=== PATIENT | female | born 1980 | race African-American/Black ===

== ENCOUNTER 2016-11-20 10:07 | Outpatient (CLI) | payer OTHER ==
--- NOTE | 2016-11-20 10:50 | Non Stress Test Report ---
Non Stress Test Datetime Report Generated by CPN: 11/20/2016 10:49 INDICATION Indication for Study: Ordered by Provider Indication for Study (NST) Other: ama VITAL SIGNS Temperature - NST: 97.5 Pulse - NST: 90 RESP - NST: 16 NBPSYS NST: 119 NBPDIA NST: 80 MONITORING Monitor Explained: Monitor Explained; Test Explained; Patient Verbalized Understanding Time on Monitor: 11/20/2016 10:24 Time off Monitor: 11/20/2016 10:46 NST Duration: 22 NST INTERVENTIONS NST Interventions: PO Hydration; Reposition Patient BABY A: [id number] BABY A Movement : Present Contraction Frequency : rare FHR Baseline : 135 Accelerations : 15X15 Decelerations : None Variability : Moderate 6-25bpm NST Review: Meets Criteria for Reactive NST NST Review and Verified By : Chiqui Camp RNC NST Results: Reactive NST REPORT Report Trigger: Send Report
== END 2016-11-20 10:49 | disposition home or self-care (01) ==
LOC: LC 10:07
PROVIDERS: ATTEND Obstetrics & Gynecology
PROC: 4A1HXCZ Monitoring of Products of Conception, Cardiac Rate, External Approach (ICD-10-PCS; principal; 2016-11-20)
DX: O09.523 Supervision of elderly multigravida, third trimester (principal); Z3A.36 36 weeks gestation of pregnancy
CPT/HCPCS: 59025

== ENCOUNTER 2016-11-23 09:54 | Outpatient (CLI) | payer OTHER ==
--- NOTE | 2016-11-23 10:45 | Non Stress Test Report ---
Non Stress Test Datetime Report Generated by CPN: 11/23/2016 10:45 DEMOGRAPHIC EGA NST: 36.3 INDICATION Indication for Study: Ordered by Provider Indication for Study (NST) Other: AMA MONITORING Monitor Explained: Monitor Explained; Test Explained; Patient Verbalized Understanding Time on Monitor: 11/23/2016 10:05 Time off Monitor: 11/23/2016 10:40 NST Duration: 35 NST INTERVENTIONS NST Interventions: PO Hydration; Reposition Patient Physician Notified NST: H Terrell CNM BABY A: [id number] BABY A Movement : Present Contraction Frequency : irregular FHR Baseline : 145 Accelerations : 15X15 Decelerations : None Variability : Moderate 6-25bpm NST Review: Meets Criteria for Reactive NST NST Review and Verified By : Usha Armendariz RNC NST Results: Reactive NST REPORT Report Trigger: Send Report
== END 2016-11-23 10:44 | disposition home or self-care (01) ==
LOC: LC 09:54
PROVIDERS: ATTEND Obstetrics & Gynecology
PROC: 4A1HXCZ Monitoring of Products of Conception, Cardiac Rate, External Approach (ICD-10-PCS; principal; 2016-11-23)
DX: O09.523 Supervision of elderly multigravida, third trimester (principal)
CPT/HCPCS: 59025

== ENCOUNTER 2016-12-06 23:16 | Inpatient (IN) | payer OTHER ==
[2016-12-06] MEDS ORDERED: LIDOCAINE 1% INJ-PF (10 MG/ML) 30 ML SDV ONE (23:43)
[2016-12-06] MEDS ORDERED: MISOPROSTOL 0.2 MG TABLET ONE ×2 (23:43→23:44)
[2016-12-06] MEDS ORDERED: OXYTOCIN/NORMAL SALINE 20 UNIT/1,000 ML RTUINJ ONE (23:43)
[2016-12-06] MEDS ORDERED: PENICILLIN G-K 5 MILLION UNIT VIAL ONE (23:43)
[2016-12-06] MEDS ORDERED: RINGERS SOLUTION,LACTATED 1,000 ML IV ONE (23:44)
[2016-12-06] MEDS ORDERED: PENICILLIN G POTASSIUM 5,000,000 UNIT in DEXTROSE 5%-WATER 100 ML IV ONE (23:44)
[2016-12-07 00:09] LABS: ABSOLUTE BASOPHILS # (AUTO) 0.1 10^3/uL (0.0-0.2); ABSOLUTE LYMPHOCYTES (AUTO) 1.7 10^3/uL (0.5-4.7); ABSOLUTE MONOCYTES (AUTO) 0.9 10^3/uL (0.1-1.4); ABSOLUTE NEUT (AUTO) 6.4 10^3/uL (1.7-8.2); BASOPHILS % (AUTO) 0.6 % (0-2); EOSINOPHILS % (AUTO) 0.4 % (0-6); HEMATOCRIT 36.1 % (36.0-47.0); HEMOGLOBIN 12.1 g/dL (12.0-15.5); HGB HCT DIFFERENCE 0.2; LYMPHOCYTES % (AUTO) 18.7 % (13-45); MEAN CORPUSCULAR HEMOGLOBIN 27.4 pg (27.0-33.4); MEAN CORPUSCULAR HGB CONC 33.6 g/dL (32.0-36.0); MEAN CORPUSCULAR VOLUME 81 fl (80-97); MONOCYTES % (AUTO) 9.6 % (3-13); RED BLOOD COUNT 4.44 10^6/uL (3.72-5.28); RED CELL DISTRIBUTION WIDTH 15.9 % (11.5-14.0); SEGMENTED NEUTROPHILS % (AUTO) 70.7 % (42-78); WHITE BLOOD COUNT 9.1 10^3/uL (4.0-10.5)
[2016-12-07] MEDS ORDERED: LIDOCAINE 1% INJ-PF (10 MG/ML) 30 ML SDV ONE (00:16)
[2016-12-07] MEDS ORDERED: OXYTOCIN/NORMAL SALINE 20 UNIT/1,000 ML RTUINJ ONE (00:16)
[2016-12-07] MEDS ORDERED: MISOPROSTOL 0.2 MG TABLET ONE (00:16)
[2016-12-07] MEDS ORDERED: FENTANYL CITRATE INJ/PF 100 MCG/2 ML AMPUL ONE ×2 (00:16→00:18)
[2016-12-07 00:24] LABS: APPEARANCE,URINE SLIGHTLY-CLOUDY; BILIRUBIN,URINE NEGATIVE (NEGATIVE); GLUCOSE, URINE NEGATIVE (NEGATIVE); KETONES,URINE 20 mg/dL (NEGATIVE); LEUKOCYTE ESTERASE,URINE NEGATIVE (NEGATIVE); NITRITE,URINE NEGATIVE (NEGATIVE); PROTEIN,URINE 100 mg/dL (NEGATIVE); URINE SPECIFIC GRAVITY 1.032; UROBILINOGEN,URINE NEGATIVE mg/dL (<2.0)
[2016-12-07 00:38] LABS: URINE BARBITURATES SCREEN NEGATIVE; URINE METHADONE SCREEN NEGATIVE; URINE OPIATES LOW NEGATIVE; URINE PHENCYCLIDINE SCREEN NEGATIVE
[2016-12-07] MEDS ORDERED: MEASLES,MUMPS&RUBELLA VACC/PF 0.5 ML VIAL SUBCUT PRN (02:29)
[2016-12-07] MEDS ORDERED: ACETAMINOPHEN WITH CODEINE #3 TABLET PO PRN ×2 (02:29)
[2016-12-07] MEDS ORDERED: BENZOCAINE/MENTHOL AEROSOL SPRAY 56 ML TOP PRN (02:29)
[2016-12-07] MEDS ORDERED: ZOLPIDEM TARTRATE 5 MG TABLET PO PRN (02:29)
[2016-12-07] MEDS ORDERED: DIBUCAINE 1% OINTMENT 28 GM TP PRN (02:29)
[2016-12-07] MEDS ORDERED: DIPH/PERTUSS(ACELL)/TETANUS VAC/PF 0.5 ML SYR (>=10YO) IM PRN (02:29)
[2016-12-07] MEDS ORDERED: OXYTOCIN/NORMAL SALINE 20,000 UNIT/1,000,000 ML RTUINJ IV PRN (02:29)
[2016-12-07] MEDS ORDERED: PENICILLIN G POTASSIUM 2,500,000 UNIT in DEXTROSE 5%-WATER 50 ML IV SCH (04:00)
[2016-12-07] MEDS ORDERED: IBUPROFEN 800 MG TABLET ONE (04:38)
[2016-12-07] MEDS: IBUPROFEN 800 MG TABLET PO SCH ×3 (04:40→22:03)
--- NOTE | 2016-12-07 05:08 | Admission Physical ---
Datetime Report Generated by CPN: 12/07/2016 05:08 CURRENT ADMISSION Hx Assessment: The History has been Reviewed and is Current Chief Complaint: Uterine Contractions Indication for Induction: Not Applicable Admit Plan: Admit to Unit; Initiate Labor Protocol ALLERGIES Medication Allergies: No Medication Allergies: No Known Allergies (11/23/2016) Medication Allergies: No Known Allergies (11/01/2013) Latex: No Latex Allergies Food Allergies: none Environmental Allergies: none OBSTETRICAL HISTORY EDC: 12/18/2016 00:00 : 4 Para: 2 Term: 1 : 1 SAB: 0 IAB: 1 Ectopic: 0 Livin Cesareans: 0 VBACs: 0 Multiple Births: 0 Gestational Diabetes: No Rh Sensitization: No Incompetent Cervix: No NATY: No Infertility: No ART Treatment: No Uterine Anomaly: No IUGR: No Hx Previous C/S: No Macrosomia: No Hx Loss/Stillborn: No PIH: No Hx : No Placenta Previa/Abruption: No Depression/PP Depression: No PTL/PROM: No Post Hemorrhage: No Current Procedures: Ultrasound; NST SEE RECORDS Alcohol: No Marijuana : No Cocaine: No Other Illicit Drugs: No Cigarettes: Never Smoker. 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 Surgery: No Heart Disease: No Hosp/Surgery: Yes Autoimmune Disorder: No Anesthetic Complications: No Kidney Disease: No Abnormal Pap Smear: No Neuro/Epilepsy: No Psychiatric Disorders: No Other Medical Diseases: No Hepatitis/Liver Disease: No Significant Family History: No Varicosities/Phlebitis: No Trauma/Violence : No Thyroid Dysfunction: No Medical History Comments: Childbirth INFECTIOUS HISTORY Gonorrhea: No Genital Herpes: Yes Chlamydia: No Tuberculosis: No Syphilis: No Hepatitis: No HIV/AIDS Exposure: No Rash or Viral Illness: No HPV: No PHYSICAL EXAM General: Normal HEENT: Normal Neurologic: Normal Thyroid: Deferred Heart: Normal Lungs: Normal Breast: Normal Back: Normal Abdomen: Normal Genitourinary Exam: Normal Extremities: Normal DTRs: Normal Pelvic Type: Adequate Vital Signs: Reviewed VAGINAL EXAM Dilatation: 8 Effacement: 70 Station: -1 Contraction Comments: 2-3 MEMBRANES Membranes: Intact FETUS A EGA: 38.2 Monitoring: External US FHR- Baseline: 150 Variability: Moderate 6-25bpm Accelerations: 15X15 Decelerations: None FHR Category: Category I Estimated Weight (gm): 3800 Presentation: Vertex Admit Comment: Admit to L _ D, in active labor, denie lof, bleeding. states ctx every few min, states active baby gbs +, pcn AMA, obese NKDA Pt coping well with labor Does not desire epidural May want IV pain meds. Anticipate PLANS FOR LABOR AND DELIVERY Labor and Delivery: Plan Pain Management: None Feeding Preference: Breast Benefit of Breast Feed Discussed: Yes Circumcision: N/A INFORMED CONSENT Assignment: Kelsi Michele MD Signature: with User ID: [email or web address] : with User ID: [email or web address]
[2016-12-07] MEDS: SENNOSIDES/DOCUSATE 8.6-50 MG 1 EACH TABLET PO SCH (09:34)
[2016-12-07] MEDS: PRENATAL VITAMIN W-O CA NO5/FE FUMARATE/FA CAPSULE PO SCH (09:34)
[2016-12-07] MEDS: FERROUS SULFATE 325 MG TABLET PO SCH ×2 (09:34→17:12)
[2016-12-07] MEDS: DOCUSATE SODIUM 100 MG CAPSULE PO SCH ×2 (09:34→17:12)
--- NOTE | 2016-12-07 10:53 | PDOC PROGRESS REPORT ---
Subjective-OB Subjective: Post Delivery Day: 36 year old. Denies any needs at this time Physical Exam (OB) Vital Signs: Temp Pulse Resp BP Pulse Ox 98.0 F 87 17 104/59 L 99 12/07/16 08:33 12/07/16 08:33 12/07/16 08:33 12/07/16 08:33 12/07/16 08:33 Intake & Output 12/06/16 12/07/16 12/08/16 06:59 06:59 06:59 Weight 99.85 kg - Lochia Lochia Amount: Small 10-25 ml Lochia Color: Rubra/Red - Abdomen Description: Soft, Round Hernia Present: No Bowel Sounds: Normoactive Flatus Presence: Absent Stool: No Fundal Description: Firm Fundal Height: u/u - u/2 Objective-Diagnostic Laboratory: 12/06/16 23:55 12/06/16 12/06/16 12/06/16 23:40 23:55 23:55 WBC 9.1 RBC 4.44 Hgb 12.1 Hct 36.1 MCV 81 MCH 27.4 MCHC 33.6 RDW 15.9 H Plt Count 169 Seg Neutrophils % 70.7 Lymphocytes % 18.7 Monocytes % 9.6 Eosinophils % 0.4 Basophils % 0.6 Absolute Neutrophils 6.4 Absolute Lymphocytes 1.7 Absolute Monocytes 0.9 Absolute Eosinophils 0.0 Absolute Basophils 0.1 Urine Color YELLOW Urine Appearance SLIGHTLY-CLOUDY Urine pH 6.0 Ur Specific [place] 1.032 Urine Protein 100 H Urine Glucose (UA) NEGATIVE Urine Ketones 20 H Urine Blood NEGATIVE Urine Nitrite NEGATIVE Ur Leukocyte Esterase NEGATIVE Blood Type B POSITIVE Antibody Screen NEGATIVE
[2016-12-08] MEDS: IBUPROFEN 800 MG TABLET PO SCH ×3 (05:53→21:32)
[2016-12-08 08:20] LABS: HEMATOCRIT 29.3 % (36.0-47.0); HGB HCT DIFFERENCE 0.1; MEAN CORPUSCULAR HGB CONC 33.3 g/dL (32.0-36.0); MEAN CORPUSCULAR VOLUME 81 fl (80-97); RED BLOOD COUNT 3.61 10^6/uL (3.72-5.28); RED CELL DISTRIBUTION WIDTH 16.3 % (11.5-14.0); WHITE BLOOD COUNT 10.7 10^3/uL (4.0-10.5)
[2016-12-08 08:21] LABS: HEMOGLOBIN 9.8 g/dL (12.0-15.5)
[2016-12-08] MEDS: PRENATAL VITAMIN W-O CA NO5/FE FUMARATE/FA CAPSULE PO SCH (10:00)
[2016-12-08] MEDS: SENNOSIDES/DOCUSATE 8.6-50 MG 1 EACH TABLET PO SCH (10:00)
[2016-12-08] MEDS: DOCUSATE SODIUM 100 MG CAPSULE PO SCH ×2 (10:01→17:10)
[2016-12-08] MEDS: FERROUS SULFATE 325 MG TABLET PO SCH ×2 (10:01→17:11)
--- NOTE | 2016-12-08 11:35 | PDOC PROGRESS REPORT ---
Subjective-OB Subjective: Post Delivery Day: 36 year old. Denies any needs at this time. Pt reports light bleeding, regular diet, voiding without difficulty. She has no complaints. Physical Exam (OB) Vital Signs: Temp Pulse Resp BP Pulse Ox 97.9 F 72 16 122/73 100 12/08/16 08:44 12/08/16 08:44 12/08/16 08:44 12/08/16 08:44 12/08/16 08:44 Intake & Output 12/07/16 12/08/16 12/09/16 06:59 06:59 06:59 Weight 99.85 kg - Lochia Lochia Amount: Small 10-25 ml Lochia Color: Rubra/Red - Abdomen Description: Soft, Round Hernia Present: No Fundal Description: Firm, Midline Fundal Height: u/u - u/2 Objective-Diagnostic Laboratory: 12/08/16 07:49 12/08/16 07:49 WBC 10.7 H RBC 3.61 L Hgb 9.8 L D Hct 29.3 L MCV 81 MCH 27.0 MCHC 33.3 RDW 16.3 H Plt Count 152 Assessment and Plan(PN) - Assessment and Plan (1) Delivery normal Is this a current diagnosis for this admission?: Yes - Time Spent with Patient Time with patient: Less than 15 minutes Medications reviewed and adjusted accordingly: Yes - Disposition Anticipated Discharge: Home Within: within 24 hours
[2016-12-09] MEDS ORDERED: SODIUM CHLORIDE ONE (02:15)
[2016-12-09] MEDS ORDERED: OXYTOCIN ONE (02:15)
[2016-12-09] MEDS: IBUPROFEN 800 MG TABLET PO SCH (05:29)
--- NOTE | 2016-12-09 08:16 | PDOC PROGRESS REPORT ---
Subjective-OB Subjective: Post Delivery Day: 36 year old. Denies any needs at this time Doing well, no c/o, Physical Exam (OB) Vital Signs: Temp Pulse Resp BP Pulse Ox 98.5 F 72 18 124/76 100 12/08/16 19:43 12/08/16 19:43 12/08/16 19:43 12/08/16 19:43 12/08/16 19:43 - PIH/Pre-Eclampsia DTR's: 2 + Clonus: Negative Headache: Absent Epigastric Pain: No Visual Changes: No - Lochia Lochia Amount: Small 10-25 ml Lochia Color: Rubra/Red - Abdomen Description: Soft, Round Hernia Present: No Fundal Description: Firm, Midline Fundal Height: u/u - u/2 Objective-Diagnostic Laboratory: 12/08/16 07:49 12/08/16 07:49 WBC 10.7 H RBC 3.61 L Hgb 9.8 L D Hct 29.3 L MCV 81 MCH 27.0 MCHC 33.3 RDW 16.3 H Plt Count 152 Assessment and Plan(PN) - Assessment and Plan (1) AMA (advanced maternal age) multigravida 35+ Qualifiers: Trimester: first trimester Qualified Code(s): O09.521 - Supervision of elderly multigravida, first trimester Is this a current diagnosis for this admission?: Yes (2) Delivery normal Is this a current diagnosis for this admission?: Yes - Time Spent with Patient Time with patient: Less than 15 minutes Medications reviewed and adjusted accordingly: Yes - Disposition Anticipated Discharge: Home Within: Other - home today
--- NOTE | 2016-12-09 08:19 | PDOC DISCHARGE SUMMARY ---
Final Diagnosis Discharge Date: 12/09/16 - Final Diagnosis (1) AMA (advanced maternal age) multigravida 35+ Is this a current diagnosis for this admission?: Yes (2) Delivery normal Is this a current diagnosis for this admission?: Yes Discharge Data - Discharge Medication Home Medications: Pnv with Ca,No.72/Iron/FA [ Plus Tablet] 1 tab PO DAILY 11/01/13 Ferrous Sulfate [Feosol 325 mg Tablet] 325 mg PO BID tablet 12/09/16 Procedures: NST, Ultrasound Intrapartum Procedure(s): Spontaneous Vaginal Delivery - [place] Data Baby 1 Female Weight: 3.487 kg - Diagnosis Test Laboratory: Temp Pulse Resp BP Pulse Ox 98.5 F 72 18 124/76 100 12/08/16 19:43 12/08/16 19:43 12/08/16 19:43 12/08/16 19:43 12/08/16 19:43 12/06/16 12/06/16 12/08/16 23:40 23:55 07:49 RBC 4.44 3.61 L Hgb 12.1 9.8 L D Hct 36.1 29.3 L Urine Opiates Screen NEGATIVE - Discharge information/Instructions Discharge Activity: Activity As Tolerated, Balance Activity w/Rest, No Lifting Over 10 Pounds, No Lifting/Push/Pulling, Pelvic Rest, No tub bath Discharge Diet: As Tolerated, Regular Disposition: HOME, SELF-CARE Follow up with: [facility] in: 4, Weeks
[2016-12-09 09:11] VITALS: BP 122/84
[2016-12-09] MEDS: DOCUSATE SODIUM 100 MG CAPSULE PO SCH (09:56)
[2016-12-09] MEDS: PRENATAL VITAMIN W-O CA NO5/FE FUMARATE/FA CAPSULE PO SCH (09:56)
[2016-12-09] MEDS: FERROUS SULFATE 325 MG TABLET PO SCH (09:57)
[2016-12-09] MEDS: SENNOSIDES/DOCUSATE 8.6-50 MG 1 EACH TABLET PO SCH (09:57)
--- NOTE | 2016-12-22 15:31 | Delivery Summary ---
Del Sum A-C Datetime Report Generated by CPN: 12/22/2016 15:31 DELIVERY PERSONNEL DELIVERY PERSONNEL: [id number] Delivery Doctor:: Shoshana Tejada CNGarret Labor and Delivery Nurse:: Polly Kay RN Senior Associate/DIRECTOR OF VOCATIONAL GUIDANCE: Wing Ertel, DIRECTOR OF VOCATIONAL GUIDANCE MATERNAL INFORMATION Delivery Anesthesia: None Medications After Delivery: Pitocin Bolus-Please Comment; Pitocin Drip 20 Units/1000ml NSS Estimated Blood Loss (ml): 300 Maternal Complications: Precipitous Labor (<3hrs) Provider Comments: of viable female infant. Head, shoulders, and body delivered without difficulty, with spontaneous cry and respirations, to maternal abdomen, cord clamped X2, cut free by pts after 2 minute delay, spontaneous delivery of placenta via sheriff mechanism, appears intact, 3VC. Vagina and perineum inspected, no lacerations noted, abrasion as above, not bleeding, not repaired, hemostasis acheived with external fundal massage and IV pitocin, mother and in stable condition, routine pp care. LABOR SUMMARY EDC: 12/18/2016 00:00 No. Babies in Womb: 1 Attempted: No Labor Anesthesia: IV Sedation LABOR INFORMATION Reason for Induction: Not Applicable Onset of Labor: 12/06/2016 22:30 Complete Dilatation: 12/07/2016 01:43 Oxytocin: N/A Group B Beta Strep: positive Antibiotics # of Doses: 1 Antibiotics Time of Last Dose: 0012 Name of Antibiotic Given: PCN Steroids Given: None Reason Steroids Not Administered: Not Applicable MEMBRANES Membranes Rupture Method: Spontaneous Rupture of Membranes: 12/07/2016 02:01 Length of Rupture (hr): 0.17 Amniotic Fluid Color: Moderate Meconium Amniotic Fluid Amount: Small Amniotic Fluid Odor: Normal STAGES OF LABOR Stage 1 hr: 3 Stage 1 min: 13 Stage 2 hr: 0 Stage 2 min: 28 Stage 3 hr: 0 Stage 3 min: 4 Total Time in Labor hr: 3 Total Time in Labor min: 45 VAGINAL DELIVERY Episiotomy: None Laceration Extension: N/A Laceration Type: None Laceration Repair: Not Applicable Laceration Repair Note: small perineal abrasion, not bleeding not repaired Sponge Count Correct: N/A Sharps Count Correct: N/A CSECTION DELIVERY Primary Indication: N/A CSection Incision: N/A BABY A INFORMATION Infant Delivery Date/Time: 12/07/2016 02:11 Method of Delivery: Vaginal Method of Delivery: Vaginal Method of Delivery: Vaginal Born in Route : No : N/A Forceps: N/A Vacuum Extraction: N/A Shoulder Dystocia : No PRESENTATION/POSITION BABY A Presentation: Cephalic Cephalic Presentation: Vertex Breech Presentation: N/A PLACENTA INFORMATION BABY A Placenta Delivery Time : 12/07/2016 02:15 Placenta Method of Delivery: Spontaneous Placenta Method of Delivery: Spontaneous Placenta Status: Delivered SCORES BABY A Heart Rate 1 min: >100 bpm Resp Effort 1 min: Good Cry Reflex Irritability 1 min: Cough or Sneeze or Pulls Away Muscle Tone 1 min: Active Motion Color 1 min: Body [place], Extremities Blue SCORE 1 MIN: 9 Heart Rate 5 min: >100 bpm Resp Effort 5 min: Good Cry Reflex Irritability 5 min: Cough or Sneeze or Pulls Away Muscle Tone 5 min: Active Motion Color 5 min: Body [place], Extremities Blue SCORE 5 MIN: 9 INFORMATION BABY A Gestational Age at Delivery: 38.3 Gestational Status: Early Term- 37- 38.6 Weeks Outcome : Liveborn Infant Condition : Stable Sex: Female Sex: Female IDENTIFICATION BABY A Verification Date/Time: 12/07/2016 03:51 ID Band Number: [id number] Mother's Name Verified: Yes RN Verifying Infant: B Kay, RN Additional Verifying Personnel: J Field, RN WEIGHT/LENGTH BABY A Infant Birthweight (gm): 3490 Infant Weight (lb): 7 Weight (oz): 11 Length (in): 20.75 Length (cm): 52.71 CORD INFORMATION BABY A No. Cord Vessels: 3 Nuchal Cord : N/A Cord Blood Taken: Yes-For Storage (Mom's Blood type +) Suction: Mouth; Nose ASSESSMENT BABY A Complications: None Physical Findings at Delivery: Within Normal Limits Respirations: Appears Normal Skin to Skin: Yes Skin to Skin Time (min): 40 Precision Crop Manager/ALS Called : No Infant Care By: Liliana Kay RN Transferred To: Remains with Mother SIGNATURES Assignment: Kelsi Michele MD Signature: with User ID: [email or web address] Signature: with User ID: [email or web address] : with User ID: [email or web address] : with User ID: [email or web address]
== END 2016-12-09 13:15 | disposition home or self-care (01) | DRG 775 ==
LOC: LC 23:16 → LR 23:39 → 2S 12-07 05:06
PROVIDERS: ADMIT Student in an Organized Health Care Education/Training Program; ATTEND Student in an Organized Health Care Education/Training Program
PROC: 10E0XZZ Delivery of Products of Conception, External Approach (ICD-10-PCS; principal; 2016-12-07)
PROC: 4A1HXCZ Monitoring of Products of Conception, Cardiac Rate, External Approach (ICD-10-PCS; 2016-12-07)
DX: O99.214 Obesity complicating childbirth (principal); O70.0 First degree perineal laceration during delivery; O77.0 Labor and delivery complicated by meconium in amniotic fluid; O62.3 Precipitate labor; E66.9 Obesity, unspecified; Z68.36 Body mass index [BMI] 36.0-36.9, adult; Z3A.38 38 weeks gestation of pregnancy; Z37.0 Single live birth
CPT/HCPCS: 36415; 80307; 81005; 85025; 85027; 86592; 86850; 86900; 86901; J2540; J2590; J3010; J3490; J7120

== ENCOUNTER 2018-10-17 16:28 | Outpatient (CLI) | payer OTHER ==
--- NOTE | 2018-10-17 17:33 | Non Stress Test Report ---
Non Stress Test Datetime Report Generated by CPN: 10/17/2018 17:33 DEMOGRAPHIC EGA NST: 39.3 INDICATION Indication for Study: Ordered by Provider MONITORING Monitor Explained: Monitor Explained; Test Explained; Patient Verbalized Understanding Time on Monitor: 10/17/2018 16:37 Time off Monitor: 10/17/2018 17:31 NST Duration: 54 NST INTERVENTIONS NST Interventions: PO Hydration Physician Notified NST: C. Donovan BABY A: [id number] BABY A Movement : Present Contraction Frequency : 10-11 FHR Baseline : 140 Accelerations : 15X15 Decelerations : None Variability : Moderate 6-25bpm NST Review: Meets Criteria for Reactive NST NST Review and Verified By : Soco Serna RN NST Results: Reactive NST REPORT Report Trigger: Send Report
== END 2018-10-17 17:39 | disposition home or self-care (01) ==
LOC: LC 16:28
PROVIDERS: ATTEND Obstetrics & Gynecology Gynecology
PROC: 4A1HXCZ Monitoring of Products of Conception, Cardiac Rate, External Approach (ICD-10-PCS; principal; 2018-10-17)
DX: Z34.93 Encounter for supervision of normal pregnancy, unspecified, third trimester (principal)
CPT/HCPCS: 59025

== ENCOUNTER 2018-10-19 03:48 | Inpatient (IN) | payer OTHER ==
[2018-10-19 04:19] LABS: APPEARANCE,URINE CLEAR; BILIRUBIN,URINE NEGATIVE (NEGATIVE); COLOR,URINE STRAW; GLUCOSE, URINE NEGATIVE (NEGATIVE); KETONES,URINE NEGATIVE (NEGATIVE); LEUKOCYTE ESTERASE,URINE NEGATIVE (NEGATIVE); NITRITE,URINE NEGATIVE (NEGATIVE); PROTEIN,URINE NEGATIVE (NEGATIVE); URINE SPECIFIC GRAVITY 1.005; UROBILINOGEN,URINE NEGATIVE mg/dL (<2.0)
[2018-10-19] MEDS ORDERED: RINGERS SOLUTION,LACTATED 1,000 ML IV PRN (04:29)
[2018-10-19] MEDS ORDERED: LIDOCAINE 1% INJ-PF (10 MG/ML) 30 ML SDV ONE (04:30)
[2018-10-19] MEDS ORDERED: OXYTOCIN/NORMAL SALINE 20 UNIT/1,000 ML RTUINJ ONE (04:30)
[2018-10-19] MEDS ORDERED: MISOPROSTOL 0.2 MG TABLET ONE (04:30)
[2018-10-19] MEDS ORDERED: PENICILLIN G-K 5 MILLION UNIT VIAL ONE ×2 (04:31→09:33)
[2018-10-19 04:33] LABS: URINE AMPHETAMINES SCREEN NEGATIVE; URINE BARBITURATES SCREEN NEGATIVE; URINE BENZODIAZEPINES SCREEN NEGATIVE; URINE COCAINE SCREEN NEGATIVE; URINE MARIJUANA (THC) SCREEN NEGATIVE; URINE METHADONE SCREEN NEGATIVE; URINE PHENCYCLIDINE SCREEN NEGATIVE
[2018-10-19] MEDS ORDERED: PENICILLIN G POTASSIUM 5,000,000 UNIT in DEXTROSE 5%-WATER 100 ML IV ONE (05:00)
[2018-10-19 05:13] LABS: ABSOLUTE EOSINOPHILS # (AUTO) 0.1 10^3/uL (0.0-0.6); ABSOLUTE LYMPHOCYTES (AUTO) 1.9 10^3/uL (0.5-4.7); ABSOLUTE MONOCYTES (AUTO) 0.8 10^3/uL (0.1-1.4); ABSOLUTE NEUT (AUTO) 4.9 10^3/uL (1.7-8.2); BASOPHILS % (AUTO) 0.6 % (0-2); EOSINOPHILS % (AUTO) 0.8 % (0-6); HEMOGLOBIN 11.5 g/dL (12.0-15.5); LYMPHOCYTES % (AUTO) 24.2 % (13-45); MEAN CORPUSCULAR HEMOGLOBIN 26.2 pg (27.0-33.4); MEAN CORPUSCULAR VOLUME 82 fl (80-97); MONOCYTES % (AUTO) 10.3 % (3-13); PLATELET COUNT 151 10^3/uL (150-450); RED BLOOD COUNT 4.41 10^6/uL (3.72-5.28); RED CELL DISTRIBUTION WIDTH 15.9 % (11.5-14.0); SEGMENTED NEUTROPHILS % (AUTO) 64.1 % (42-78); TOTAL CELLS COUNTED % (AUTO) 100 %; WHITE BLOOD COUNT 7.7 10^3/uL (4.0-10.5)
[2018-10-19] MEDS ORDERED: OXYTOCIN/NORMAL SALINE 20 UNIT/1,000 ML RTUINJ IV PRN ×2 (06:30→15:18)
--- NOTE | 2018-10-19 07:05 | Admission Physical ---
Datetime Report Generated by CPN: 10/19/2018 07:05 CURRENT ADMISSION Chief Complaint: Suspected Ruptured Membranes Chief Complaint Other: "My water broke at 3:30" Indication for Induction: Not Applicable Admit Impression : Term, Intrauterine ; Active Labor Admit Plan: Admit to Unit; Initiate Labor Protocol ALLERGIES Medication Allergies: No Medication Allergies: No Known Allergies (10/17/2018) Latex: No Latex Allergies OBSTETRICAL HISTORY EDC: 10/21/2018 00:00 : 5 Para: 2 Term: 2 : 1 Livin Gestational Diabetes: No Rh Sensitization: No Incompetent Cervix: No NATY: No Infertility: No ART Treatment: No Uterine Anomaly: No IUGR: No Hx Previous C/S: No Macrosomia: No Hx Loss/Stillborn: No PIH: No Hx : No Placenta Previa/Abruption: No Depression/PP Depression: No PTL/PROM: No Post Hemorrhage: No Current Procedures: Ultrasound; NST Obstetrical History Comments: G1: 1996 25 wks , PROM, placental abruption, baby G2: 2001, almost 3 months, EAB G3: 41.3 vaginal, 7lbs 10oz G4: 38.3, vaginal, 7lbs 11 oz G5: current SEE RECORDS Alcohol: No Marijuana : No Cocaine: No Other Illicit Drugs: No Cigarettes: Never Smoker. 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: No Heart Disease: No Hosp/Surgery: Yes Autoimmune Disorder: No Anesthetic Complications: No Kidney Disease: No Abnormal Pap Smear: No Neuro/Epilepsy: No Psychiatric Disorders: No Other Medical Diseases: No Hepatitis/Liver Disease: No Significant Family History: No Varicosities/Phlebitis: No Trauma/Violence : No Thyroid Dysfunction: No INFECTIOUS HISTORY Gonorrhea: No Genital Herpes: Yes Chlamydia: No Tuberculosis: No Syphilis: No Hepatitis: No HIV/AIDS Exposure: No Rash or Viral Illness: No HPV: No Infectious History Comments: HSV September 23 PHYSICAL EXAM General: Normal HEENT: Normal Neurologic: Normal Thyroid: Normal Heart: Normal Lungs: Normal Breast: Normal Back: Normal Abdomen: Normal Genitourinary Exam: Normal Extremities: Normal DTRs: Normal Pelvic Type: Adequate Vital Signs: Reviewed; Within Normal Limits VAGINAL EXAM Dilatation: 5 Effacement: 50 Station: -3 Contraction Comments: q 2-4 MEMBRANES Pooling: Positive Membranes: Ruptured Amniotic Fluid Color: Clear FETUS A EGA: 39.5 Monitoring: External US FHR- Baseline: 130s Variability: Moderate 6-25bpm Accelerations: 15X15 FHR Category: Category I Admit Comment: This 37 yo presents to L_D c/o ROM at 0330. 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 Gives h/o not having any outbreaks for several years. She reports good movement. She is GBS Positive. Her current cervical exam is . PLANS FOR LABOR AND DELIVERY Labor and Delivery: Plan Pain Management: Natural Feeding Preference: Breast Benefit of Breast Feed Discussed: Yes Circumcision: Yes INFORMED CONSENT Signature: with User ID: [email or web address]
[2018-10-19] MEDS ORDERED: EPHEDRINE SULFATE INJ 50 MG/1 ML AMPULE ONE (08:20)
[2018-10-19] MEDS ORDERED: FENTANYL CITRATE INJ/PF 100 MCG/2 ML AMPUL ONE (08:20)
[2018-10-19] MEDS ORDERED: PHENYLEPHRINE HCL INJ/PF 10 MG/1 ML SDV ONE (08:20)
[2018-10-19] MEDS ORDERED: FENTANYL/BUPIVACAINE/NS/PF 300 MCG/150 ML RTUINJ EPI ONE (08:21)
[2018-10-19] MEDS ORDERED: BUPIVACAINE HCL 0.25 % INJ/PF (2.5 MG/1 ML) 30 ML VIAL ONE (08:21)
[2018-10-19] MEDS: PENICILLIN G POTASSIUM 2,500,000 UNIT in DEXTROSE 5%-WATER 50 ML IV SCH ×2 (09:41→22:45)
[2018-10-19] MEDS ORDERED: PROMETHAZINE HCL INJ 25 MG/1 ML VIAL IV PRN (15:18)
[2018-10-19] MEDS ORDERED: ACETAMINOPHEN WITH CODEINE #3 TABLET PO PRN ×2 (15:18)
[2018-10-19] MEDS ORDERED: MAGNESIUM HYDROXIDE SUSP 30 ML UDCUP PO PRN (15:18)
[2018-10-19] MEDS ORDERED: DIPH/PERTUSS(ACELL)/TETANUS VAC/PF 0.5 ML SYR (>=10YO) IM PRN (15:18)
[2018-10-19] MEDS ORDERED: PROMETHAZINE HCL 25 MG SUPP.RECT PR PRN (15:18)
[2018-10-19] MEDS ORDERED: NA PHOS,M-B/NA PHOS,DI-BA (ADULT) 133 ML ENEMA PR PRN (15:18)
[2018-10-19] MEDS ORDERED: BENZOCAINE/MENTHOL AEROSOL SPRAY 56 ML TOP PRN (15:18)
[2018-10-19] MEDS ORDERED: DIBUCAINE 1% OINTMENT 56 GM TP PRN (15:18)
[2018-10-19] MEDS ORDERED: DIPHENHYDRAMINE HCL 25 MG CAPSULE PO PRN (15:18)
[2018-10-19] MEDS ORDERED: MEASLES,MUMPS&RUBELLA VACC/PF 0.5 ML VIAL SUBCUT PRN (15:18)
[2018-10-19] MEDS ORDERED: ACETAMINOPHEN 650 MG SUPP.RECT PR PRN (15:18)
[2018-10-19] MEDS ORDERED: PROMETHAZINE HCL 25 MG TABLET PO PRN (15:18)
[2018-10-19] MEDS ORDERED: ZOLPIDEM TARTRATE 5 MG TABLET PO PRN (15:18)
[2018-10-19] MEDS ORDERED: GLYCERIN/WITCH HAZEL LEAF 1 EACH MED..WIPE TP PRN (15:18)
[2018-10-19] MEDS ORDERED: PSEUDOEPHEDRINE HCL 30 MG TABLET PO PRN (15:18)
[2018-10-19] MEDS: FERROUS SULFATE 325 MG TABLET PO SCH (17:48)
[2018-10-19] MEDS: DOCUSATE SODIUM 100 MG CAPSULE PO SCH (17:48)
--- NOTE | 2018-10-19 18:20 | Delivery Summary ---
Del Sum A-C Datetime Report Generated by CPN: 10/19/2018 18:19 DELIVERY PERSONNEL DELIVERY PERSONNEL: [id number] Delivery Doctor:: Kimberly Goncalves MD Labor and Delivery Nurse:: Stella Serna, RNC Labor and Delivery Nurse:: Aleja Sampson RN Metal Tile Setter/CHILD NUTRITION MANAGER: Jodi Quiñones, ST Metal Tile Setter/CHILD NUTRITION MANAGER: Moustapha Rudd, DIRECT CARE PROVIDER MATERNAL INFORMATION Delivery Anesthesia: Epidural Medications After Delivery: Pitocin Drip 20 Units/1000ml NSS Estimated Blood Loss (ml): 200 Delivery QBL: 188 Maternal Complications: None Provider Comments: SAVD with nuchal reduced after delivery of fetus. Fetus placed directly on mom for bonding. Delayed cord clamping. Cord blood collected. First degree perineal laceration repaired with two interrupted 3-0 vicryl sutures. Patient tolerated procedure well. LABOR SUMMARY EDC: 10/21/2018 00:00 No. Babies in Womb: 1 Attempted: No Labor Anesthesia: Epidural LABOR INFORMATION Reason for Induction: Not Applicable Onset of Labor: 10/19/2018 03:30 Complete Dilatation: 10/19/2018 14:40 Oxytocin: N/A Group B Beta Strep: positive Antibiotics # of Doses: 3 Antibiotics Time of Last Dose: 1220 Name of Antibiotic Given: penicillin Steroids Given: None Reason Steroids Not Administered: Not Applicable MEMBRANES Membranes Rupture Method: Spontaneous Rupture of Membranes: 10/19/2018 03:30 Length of Rupture (hr): 11.25 Amniotic Fluid Color: Clear Amniotic Fluid Amount: Moderate Amniotic Fluid Odor: None STAGES OF LABOR Stage 1 hr: 11 Stage 1 min: 10 Stage 2 hr: 0 Stage 2 min: 5 Stage 3 hr: 0 Stage 3 min: 6 Total Time in Labor hr: 11 Total Time in Labor min: 21 VAGINAL DELIVERY Episiotomy: None Laceration #1: Perineal Laceration Extension #1: First Degree Laceration Repair: Yes Laceration Repair Note: First degree perineal laceration repaired with 3-0 vicryl rapide. Patient tolerated the procedure well. Sponge Count Correct: Yes Sharps Count Correct: Yes CSECTION DELIVERY Primary Indication: N/A Secondary Indication: N/A CSection Incidence: N/A Labor: N/A Elective: N/A CSection Incision: N/A BABY A INFORMATION Delivery Date/Time: 10/19/2018 14:45 Method of Delivery: Vaginal Born in Route : No : N/A Forceps: N/A Vacuum Extraction: N/A Shoulder Dystocia : No PRESENTATION/POSITION BABY A Presentation: Cephalic Cephalic Presentation: Vertex Vertex Position: Left Occipital Anterior Breech Presentation: N/A PLACENTA INFORMATION BABY A Placenta Delivery Time : 10/19/2018 14:51 Placenta Method of Delivery: Spontaneous Placenta Status: Delivered SCORES BABY A Heart Rate 1 min: >100 bpm Resp Effort 1 min: Good Cry Reflex Irritability 1 min: Cough or Sneeze or Pulls Away Muscle Tone 1 min: Active Motion Color 1 min: Blue/Pale SCORE 1 MIN: 8 Heart Rate 5 min: >100 bpm Resp Effort 5 min: Good Cry Reflex Irritability 5 min: Cough or Sneeze or Pulls Away Muscle Tone 5 min: Active Motion Color 5 min: Body [place], Extremities Blue Resuscitation Effort 5 min: N/A SCORE 5 MIN: 9 INFANT INFORMATION BABY A Gestational Age at Delivery: 39.5 Gestational Status: Full Term- 39- 40.6 Weeks Infant Outcome : Liveborn Infant Condition : Stable Infant Sex: Male IDENTIFICATION BABY A Infant Verification Date/Time: 10/19/2018 14:57 ID Band Number: [id number] Mother's Name Verified: Yes Infant RN Verifying : B Baidy RN/H Kofi RN WEIGHT/LENGTH BABY A Birthweight (gm): 3704 Infant Weight (lb): 8 Weight (oz): 3 Length (in): 19.75 Length (cm): 50.17 CORD INFORMATION BABY A No. Cord Vessels: 3 Nuchal Cord : Around Neck x1, Loose Cord Blood Taken: Yes-For Storage (Mom's Blood type +) Suction: None ASSESSMENT BABY A Complications: None Physical Findings at Delivery: Within Normal Limits Infant Respirations: Appears Normal Skin to Skin: Yes Skin to Skin Time (min): 45 Sheep Sorter/ALS Called : No Care By: D Bellavance RN Transferred To: Remains with Mother BABY B INFORMATION : N/A SIGNATURES Signature: with User ID: [email or web address]
[2018-10-19] MEDS: IBUPROFEN 800 MG TABLET PO SCH (22:30)
[2018-10-19] MEDS: FAMOTIDINE 20 MG TABLET PO SCH (22:31)
[2018-10-20] MEDS: IBUPROFEN 800 MG TABLET PO SCH ×3 (06:00→22:16)
[2018-10-20 07:36] LABS: HEMATOCRIT 29.3 % (36.0-47.0); HEMOGLOBIN 9.8 g/dL (12.0-15.5); MEAN CORPUSCULAR HEMOGLOBIN 26.9 pg (27.0-33.4); MEAN CORPUSCULAR HGB CONC 33.3 g/dL (32.0-36.0); MEAN CORPUSCULAR VOLUME 81 fl (80-97); PLATELET COUNT 127 10^3/uL (150-450); RED BLOOD COUNT 3.63 10^6/uL (3.72-5.28); RED CELL DISTRIBUTION WIDTH 16.1 % (11.5-14.0); WHITE BLOOD COUNT 10.9 10^3/uL (4.0-10.5)
--- NOTE | 2018-10-20 09:10 | PDOC PROGRESS REPORT ---
Subjective-OB Progress Note for:: 10/20/18 Subjective: Doing well, no c/o, breast feeding, scant lochia Physical Exam (OB) Vital Signs: Temp Pulse Resp BP Pulse Ox 98.5 F 95 18 123/80 99 10/19/18 20:27 10/19/18 20:27 10/19/18 20:27 10/19/18 20:27 10/19/18 20:27 Intake & Output 10/19/18 10/20/18 10/21/18 06:59 06:59 06:59 Intake Total 240 Balance 240 Weight 104.1 kg - PIH/Pre-Eclampsia Clonus: Negative Headache: Absent Epigastric Pain: No Visual Changes: No - Lochia Lochia Amount: Small 10-25 ml Lochia Color: Rubra/Red - Abdomen Description: Soft Hernia Present: No Fundal Description: Firm, Midline Fundal Height: u/u - u/2 Objective-Diagnostic Laboratory: 10/20/18 06:46 10/20/18 06:46 WBC 10.9 H RBC 3.63 L Hgb 9.8 L Hct 29.3 L MCV 81 MCH 26.9 L MCHC 33.3 RDW 16.1 H Plt Count 127 L Assessment and Plan(PN) - Assessment and Plan (1) Hx HSV and HPV Is this a current diagnosis for this admission?: Yes (2) Hx demise Is this a current diagnosis for this admission?: Yes (3) AMA (advanced maternal age) multigravida 35+ Qualifiers: Trimester: first trimester Qualified Code(s): O09.521 - Supervision of elderly multigravida, first trimester Is this a current diagnosis for this admission?: Yes (4) Delivery normal Is this a current diagnosis for this admission?: Yes - Time Spent with Patient Time with patient: Less than 15 minutes Medications reviewed and adjusted accordingly: Yes - Disposition Anticipated Discharge: Home Within: within 24 hours
[2018-10-20] MEDS: PRENATAL VITAMIN W DHA CAPSULE PO SCH (09:49)
[2018-10-20] MEDS: DOCUSATE SODIUM 100 MG CAPSULE PO SCH ×2 (09:49→17:53)
[2018-10-20] MEDS: SENNOSIDES/DOCUSATE 8.6-50 MG 1 EACH TABLET PO SCH (09:49)
[2018-10-20] MEDS: FERROUS SULFATE 325 MG TABLET PO SCH ×2 (09:49→17:53)
[2018-10-20] MEDS: FAMOTIDINE 20 MG TABLET PO SCH ×2 (09:50→21:37)
[2018-10-21] MEDS: IBUPROFEN 800 MG TABLET PO SCH ×2 (05:12→13:56)
[2018-10-21] MEDS: SENNOSIDES/DOCUSATE 8.6-50 MG 1 EACH TABLET PO SCH (10:07)
[2018-10-21] MEDS: FAMOTIDINE 20 MG TABLET PO SCH (10:07)
[2018-10-21] MEDS: PRENATAL VITAMIN W DHA CAPSULE PO SCH (10:07)
[2018-10-21] MEDS: FERROUS SULFATE 325 MG TABLET PO SCH ×2 (10:07→17:27)
[2018-10-21] MEDS: DOCUSATE SODIUM 100 MG CAPSULE PO SCH ×2 (10:07→17:27)
--- NOTE | 2018-10-21 10:20 | PDOC DISCHARGE SUMMARY ---
Final Diagnosis Discharge Date: 10/21/18 - Final Diagnosis (1) Acute blood loss anemia Is this a current diagnosis for this admission?: Yes (2) Perineal laceration during delivery, delivered Is this a current diagnosis for this admission?: Yes (3) AMA (advanced maternal age) multigravida 35+ Is this a current diagnosis for this admission?: Yes (4) Delivery normal Is this a current diagnosis for this admission?: Yes (5) Hx HSV and HPV Is this a current diagnosis for this admission?: Yes (6) Hx demise Is this a current diagnosis for this admission?: Yes (7) Is this a current diagnosis for this admission?: Yes Discharge Data - Discharge Medication Prescriptions: Ibuprofen [Motrin 800 mg Tablet] 800 mg PO Q8HP PRN #30 tablet PRN Reason: Abdominal Cramping Docusate Sodium [Colace 100 mg Capsule] 100 mg PO BID #60 capsule Ferrous Sulfate [Feosol 325 mg Tablet] 325 mg PO BID #60 tablet Home Medications: Pnv with Ca,No.72/Iron/FA [ Plus Tablet] 1 tab PO DAILY 11/01/13 Valacyclovir HCl [Valtrex] 1 gm PO DAILY 10/17/18 Docusate Sodium [Colace 100 mg Capsule] 100 mg PO BID #60 capsule 10/21/18 Ferrous Sulfate [Feosol 325 mg Tablet] 325 mg PO BID #60 tablet 10/21/18 Ibuprofen [Motrin 800 mg Tablet] 800 mg PO Q8HP PRN #30 tablet 10/21/18 Reason(s) for Admission: Onset of Labor Procedures: NST, Ultrasound Intrapartum Procedure(s): Spontaneous Vaginal Delivery Complication(s): Laceration-Perineal Laceration-Degree: 1st - Diagnosis Test Laboratory: Temp Pulse Resp BP Pulse Ox 97.9 F 80 16 121/85 99 10/21/18 07:26 10/21/18 07:26 10/21/18 07:26 10/21/18 07:26 10/21/18 07:26 10/19/18 10/19/18 10/20/18 04:00 05:02 06:46 RBC 4.41 3.63 L Hgb 11.5 L 9.8 L Hct 36.0 29.3 L Urine Opiates Screen NEGATIVE - Discharge information/Instructions Discharge Activity: Activity As Tolerated, Balance Activity w/Rest, No Lifting Over 10 Pounds, No Lifting/Push/Pulling, Pelvic Rest, No tub bath, Walk Frequently Discharge Diet: As Tolerated, Regular Disposition: HOME, SELF-CARE Follow up with: [facility]: 5, Weeks
[2018-10-21 15:34] VITALS: BP 126/79
[2018-10-21] MEDS ORDERED: IBUPROFEN 800 MG TABLET PO ONE (17:45)
== END 2018-10-21 18:45 | disposition home or self-care (01) | DRG 806 ==
LOC: LC 03:48 → LR 04:28 → 2S 17:20
PROVIDERS: ADMIT Obstetrics & Gynecology; ATTEND Obstetrics & Gynecology
PROC: 10E0XZZ Delivery of Products of Conception, External Approach (ICD-10-PCS; principal; 2018-10-19)
PROC: 0HQ9XZZ Repair Perineum Skin, External Approach (ICD-10-PCS; 2018-10-19)
DX: O69.81X0 Labor and delivery complicated by cord around neck, without compression, not applicable or unspecified (principal); O98.52 Other viral diseases complicating childbirth; Z37.0 Single live birth; D62 Acute posthemorrhagic anemia; O70.0 First degree perineal laceration during delivery; Z3A.39 39 weeks gestation of pregnancy; B00.9 Herpesviral infection, unspecified; O26.23 Pregnancy care for patient with recurrent pregnancy loss, third trimester; O99.02 Anemia complicating childbirth
CPT/HCPCS: 36415; 80307; 81005; 85025; 85027; 86592; 86850; 86900; 86901; 94760; J2370; J2540; J2590; J3010; J3490; J7060